=== PATIENT | male | born 1995 | race Hispanic/Latino ===

== ENCOUNTER 2019-08-22 16:19 | Outpatient (AMB) | payer MEDICAID, SELFPAY ==
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
[2019-08-22 16:29] VITALS: BP 176/110; PULSE 123; RESP 18; TEMP 37.1; O2SAT 96; BMI 39.5
[2019-08-22 16:37] VITALS: BP 181/110
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
== END 2019-08-22 16:45 | disposition home or self-care (01) ==
PROVIDERS: Visit Provider Nurse Practitioner Family